=== PATIENT | female | born 1995 | race Two or more races ===

== ENCOUNTER 2022-10-23 19:46 | Outpatient (CLI) | payer OTHER | END 2022-10-24 13:35 | disposition home or self-care (01) | LOC: OBS/DEL 19:46 | PROVIDERS: ATTEND Obstetrics & Gynecology | DX: O23.33 Infections of other parts of urinary tract in pregnancy, third trimester (principal); N39.0 Urinary tract infection, site not specified; Z3A.32 32 weeks gestation of pregnancy ==